=== PATIENT | male | born 1975 | race Caucasian/White ===

== ENCOUNTER 2017-05-16 22:52 | Emergency (ER) | payer MEDICAID ==
--- NOTE | 2017-05-16 22:54 | EDPHY ---
H & P HPI/ROS: CHIEF COMPLAINT: Medical screening for incarceration, head injury HISTORY OF PRESENT ILLNESS: 41-year-old homeless male history of schizoaffective disorder arrives via ambulance accompanied by police for medical screening prior to incarceration. Per police they found the patient sleeping on the sidewalk with noted left frontal abrasion and hematoma. Patient does not recall how this occurred. Patient denies alcohol or drug use. He denies complaints of pain or discomfort. Denies head injury. Denies midline C-spine pain. Denies peripheral paresthesia, weakness, numbness. Unknown when last tetanus was. History of schizoaffective disorder, noncompliant with medications. Denies suicidal or homicidal ideation. REVIEW OF SYSTEMS: A ten point review of systems was performed and is negative with the exception of the items mentioned in the HPI Constitutional: No fever, no chills. Eyes: No visual complaint , no diplopia ENT: No facial injury Cardiovascular: No chest pain, no palpitations. Respiratory: no shortness of breath. Gastrointestinal: No abdominal pain, no vomiting. Genitourinary: No complaints or straddle injury Musculoskeletal: No midline back pain. Skin: No laceration or abrasion Neurological: No headache. Aside from elements discussed in the HPI, a comprehensive 10 point review of systems was reviewed and is negative. PAST MEDICAL/SURGICAL HISTORY: Schizoaffective disorder, states noncompliant with medication. SOCIAL HISTORY: denies alcohol use at time of incident PHYSICAL EXAM 1) GENERAL: Well-developed, well-nourished, alert and oriented. Appears to be in no acute distress. Answering questions appropriately. 2) HEAD: Normocephalic, left frontal abrasion and hematoma noted. 3) HEENT: Pupils equal, round, reactive to light bilaterally. Negative Horners. Nasopharynx, oropharynx, clear. No deformity or angulation of nose. No septal hematoma. No rhinorrhea. No oral trauma. Ears bilaterally with normal tympanic membranes. No hemotympanum. No fluid or blood in the external auditory canal. No raccoon eyes. No Blair sign. Teeth are normally aligned with no gross malocclusion, TMJ bilaterally nontender, facial bones nontender including the zygomatic arch, maxilla mandible. 4) NECK: No cervical collar is on. Posterior cervical spine is nontender, no stepoff, no effusion. Full range of motion which does not elicit any midline cervical spine pain, no posterior midline tenderness, no step-off. 5) LUNGS: Clear to auscultation bilaterally, no wheezes, no rhonchi, no retractions. No obvious signs of trauma. No chest wall pain. No flaring, no grunting. Moving symmetrically. No crepitus. 6) HEART: Regular rate and rhythm, 7) ABDOMEN: No guarding, no rebound, no focal tenderness, no peritoneal signs, no signs of trauma, no ecchymosis 8) MUSCULOSKELETAL: Moving all extremities, no focal areas of tenderness, no obvious trauma. 9) BACK: No midline vertebral tenderness, no fluctuance, no step-off, no obvious trauma, no visual or palpable abnormality. 10) SKIN: left frontal abrasion DIFFERENTIAL DIAGNOSIS: Not necessarily in any particular order, my differential diagnosis includes, but is not limited to, concussion, skull fracture, intraparenchymal contusion, subarachnoid, subdural and epidural hematoma. The patient understands that this diagnosis is provisional and can never be 100% accurate. (Abi Fields) Constitutional: Initial Vital Signs Temperature (C) 36.7 C 05/16/17 22:53 Heart Rate 80 05/16/17 22:53 Respiratory Rate 16 05/16/17 22:53 Blood Pressure 144/89 H 05/16/17 22:53 O2 Sat (%) 95 05/16/17 22:53 O2 Delivery Mode Room Air Allergies/Adverse Reactions: No Known Allergies Allergy (Unverified 05/16/17 22:53) Home Medications: Medication Instructions Recorded Permethrin 5% [Elimite 5%] 60 amanda TP ONCE #1 cream 05/12/13 SEROQUEL 05/12/13 Medical Decision Making - Diagnostics Imaging Results: Imaging Impressions Cervical Spine CT 05/16/17 22:57 Impression: Negative noncontrast CT of the cervical spine for acute traumatic injury. The study was performed as an emergency on-call case and discussed by telephone with Dr. Blanton at 11:30 PM hrs. The final interpretation is concordant with the original communication. . Head CT 05/16/17 22:57 Impression: Normal noncontrast CT of the brain. Results called to Dr. Blanton at 11:30 AM at the time of the interpretation. CT head and C-spine are normal, discussed with Dr. Hernandez of Radiology. ( Beth Blanton) ED Course/Re-evaluation: Care the patient turned over to pending CT imaging results. (Abi Fields) Other Provider: PHYSICIAN DOCUMENTATION: The patient was evaluated and managed by the Physician [employer]. My co- signature indicates that I have reviewed this chart and I agree with the findings and plan of care as documented. I am the secondary supervising physician. I have followed up on the patient's imaging results which are normal. He will be discharged into police custody. (Beth Blanton) - Data Points Medications Given: Discontinued Medications Diphtheria/Tetanus/Acell Pertussis (Boostrix) 0.5 ml IM .ONCE ONE Stop: 05/16/17 22:57 Last Admin: 05/16/17 23:26 Dose: 0.5 ml Departure - Departure Disposition: Law Enforcement/Court/Custodial Clinical Impression: Head injury due to trauma Qualifiers: Encounter type: initial encounter Qualified Code(s): S09.90XA - Unspecified injury of head, initial encounter Abrasion of head Qualifiers: Encounter type: initial encounter Qualified Code(s): S00.91XA - Abrasion of unspecified part of head, initial encounter Condition: Good Instructions: Head Injury (ED) Additional Instructions: You are medically cleared for long term. ALTHOUGH THERE IS NO EVIDENCE OF SERIOUS HEAD INJURY AT THIS TIME, DELAYED SIGNS CAN APPEAR 24 TO 48 HOURS AFTER INJURY. WE RECOMMEND THAT YOU DESIGNATE A FRIEND OR FAMILY MEMBER TO OBSERVE YOU OVER THE NEXT FEW DAYS TO ENSURE THAT YOUR CONDITION IS PROGRESSING NORMALLY. PLEASE RETURN TO THE EMERGENCY DEPARTMENT (ED) IMMEDIATELY IF YOU HAVE INCREASED HEADACHE, PERSISTENT HEADACHE , VOMITING, WEAKNESS, CONFUSION OR VISUAL PROBLEMS. WE RECOMMEND THAT YOU DO NOT RESUME CONTACT SPORTS OR ACTIVITIES THAT TAKE COORDINATION OR BALANCE SUCH SKIING OR RIDING A BICYCLE UNTIL CLEARED TO DO SO BY YOUR DOCTOR OR BY A NEUROLOGIST. Referrals: [facility],. [Clinic] - 1-2 days without fail
[2017-05-16] MEDS ORDERED: TDAP ADULT 0.5 ML INJ (BOOSTRIX) IM ONE (22:56)
[2017-05-16 22:58] VITALS: BP 144/89; PULSE 80; RESP 16; TEMP 98.1; O2SAT 95
== END 2017-05-16 23:44 ==
LOC: EDUNIT#
DX: S00.81XA Abrasion of other part of head, initial encounter (principal); Z23 Encounter for immunization; X58.XXXA Exposure to other specified factors, initial encounter

== ENCOUNTER 2017-11-22 01:00 | Emergency (ER) | payer MEDICAID ==
[2017-11-22] MEDS ORDERED: MIDAZOLAM 10 MG/2 ML VIAL ONE (01:03)
[2017-11-22] MEDS ORDERED: MIDAZOLAM 10 MG/2 ML VIAL IM ONE (01:04)
--- NOTE | 2017-11-22 01:07 | EDPHY ---
H & P Stated Complaint: found down Time Seen by Provider: 11/22/17 01:04 HPI/ROS: HPI The patient presents brought in by ambulance after being found outside of a liquor store lying down. Police were breaking up a transient camp near by. EMS transported the patient in. Initially, he was somewhat sedate and seeming intoxicated. However during the transfer he became more awake, alert, agitated. He has been yelling and required 4 point restraints. REVIEW OF SYSTEMS Constitutional: No fever, no chills. Eyes: No discharge. ENT: No sore throat. Cardiovascular: No chest pain, no palpitations. Respiratory: No cough, no shortness of breath. Gastrointestinal: No abdominal pain, no vomiting. Genitourinary: No hematuria. Musculoskeletal: No back pain. Skin: No rashes. Neurological: No headache. PMHx: Previous psychiatric history Soc Hx: Homelessness, history of alcohol abuse PHYSICAL General Appearance: Alert, yelling and agitated in restraints Eyes: Pupils equal and round no pallor or injection ENT, Mouth: Mucous membranes moist Respiratory: There are no retractions, lungs are clear to auscultation Cardiovascular: Regular rate and rhythm Gastrointestinal: Abdomen is soft and non-tender, no masses, bowel sounds normal Neurological: A&O, moves all extremities Skin: Warm and dry, no rashes Musculoskeletal: Neck is supple non tender Extremities: symmetrical, full range of motion Psychiatric: Patient is oriented X 3, there is no agitation Source: Patient, EMS Exam Limitations: Intoxication - Medical/Surgical History Hx Asthma: No Hx Chronic Respiratory Disease: No Hx Diabetes: No Hx Cardiac Disease: No Hx Renal Disease: No Hx Cirrhosis: No Hx Alcoholism: Yes Hx HIV/AIDS: No Hx Splenectomy or Spleen Trauma: No Other PMH: Psych, ETOH - Social History Smoking Status: Current every day smoker Constitutional: Initial Vital Signs Temperature (C) 36.8 C 11/22/17 01:08 Heart Rate 131 H 11/22/17 01:08 Respiratory Rate 22 H 11/22/17 01:08 Blood Pressure 159/123 H 11/22/17 01:08 O2 Sat (%) 97 11/22/17 01:08 O2 Delivery Mode Nasal Cannula O2 (L/minute) 2 Allergies/Adverse Reactions: No Known Allergies Allergy (Unverified 05/16/17 22:53) Home Medications: Medication Instructions Recorded SEROQUEL 05/12/13 Trilafon 11/22/17 Wellbutrin Sr 11/22/17 Medical Decision Making Differential Diagnosis: This is a 42-year-old man who is homeless with history of alcohol abuse and psychiatric disease who presents brought in by ambulance after being found down outside of a liquor store. He became agitated in route and required restraints. Here he is yelling and somewhat directable. Plan for treatment with Versed 5 mg IM and we will monitor him. Differential diagnosis includes alcohol intoxication, polysubstance abuse, closed head injury. 6:20 a.m.- Patient is now awake, rouses easily. He denies any complaint. He does not have a headache, nausea, vomiting. I doubt any significant closed head injury. I suspect his symptoms are related to alcohol or methamphetamine intoxication. We were not able to obtain urine toxicology. He is willing to be discharged and will go home from the emergency department after walking with a steady gait. - Data Points Medications Given: Discontinued Medications Sodium Chloride (Ns) 1,000 mls @ 0 mls/hr IV ONCE ONE; Wide Open PRN Reason: Protocol Stop: 11/22/17 01:13 Last Admin: 11/22/17 01:13 Dose: 1,000 mls Midazolam HCl (Versed) 5 mg IM EDNOW ONE Stop: 11/22/17 01:05 Last Admin: 11/22/17 01:11 Dose: 5 mg Midazolam HCl (Versed) 3 mg IVP EDNOW ONE Stop: 11/22/17 01:24 Last Admin: 11/22/17 01:25 Dose: 3 mg Departure - Departure Disposition: Home, Routine, Self-Care Clinical Impression: Agitation Alcoholic intoxication Qualifiers: Complication of substance-induced condition: with delirium Qualified Code(s): F10.921 - Alcohol use, unspecified with intoxication delirium Condition: Good Instructions: Alcohol Intoxication (ED) Additional Instructions: Please return to the emergency department if your worse in any way. Referrals: [facility],. [Clinic] - As per Instructions
[2017-11-22] MEDS ORDERED: NS 1,000 ML IV ONE (01:12)
[2017-11-22] MEDS ORDERED: MIDAZOLAM 2 MG/2 ML VIAL IVP ONE (01:23)
[2017-11-22 08:11] VITALS: BP 131/90
== END 2017-11-22 08:12 | disposition home or self-care (01) ==
LOC: EDUNIT#
DX: R45.1 Restlessness and agitation (principal); F10.921 Alcohol use, unspecified with intoxication delirium; E86.9 Volume depletion, unspecified; F17.200 Nicotine dependence, unspecified, uncomplicated
CPT/HCPCS: 96374; J2250